=== PATIENT | female | born 1940 | race American Indian/Alaskan Native ===

== ENCOUNTER 2020-11-29 09:58 | Emergency (ER) | payer MEDICARE, BC, OTHER ==
[~2020-11-29] VITALS: Ht 152.4 cm; Wt 76.7 kg
[~2020-11-29 09:58] MED LIST: ALENDRONATE SOD70 MG PO; ALLOPURINOL300 MG PO; ANTIVERT25 MG PO; LISINOPRIL20 MG PO; METFORMIN HCL500 MG PO; VITAMIN D3400 UNIT PO; [UNRECOGNIZED DRUG - OTHER] PO
[2020-11-29] MEDS ORDERED: GLIPIZIDE XL5 MG PO (10:25)
[2020-11-29] MEDS ORDERED: TRAVOPROST2.5 ML OP (10:25)
== END 2020-11-29 10:56 | disposition home or self-care (01) ==
LOC: ED 09:58
DX: S83.91XA Sprain of unspecified site of right knee, initial encounter (principal); E11.9 Type 2 diabetes mellitus without complications; X58.XXXA Exposure to other specified factors, initial encounter; Z88.5 Allergy status to narcotic agent; Z91.048 Other nonmedicinal substance allergy status; Z79.899 Other long term (current) drug therapy; Z79.84 Long term (current) use of oral hypoglycemic drugs
CPT/HCPCS: 73560; 99283-25

== ENCOUNTER 2024-03-15 10:05 | Emergency (ER) | payer MEDICARE, BC, OTHER ==
[~2024-03-15] VITALS: Ht 152.4 cm; Wt 80.0 kg
[~2024-03-15 10:05] MED LIST changes: +GLIPIZIDE XL5 MG PO; +TRAVOPROST2.5 ML OP
[2024-03-15] MEDS ORDERED: [UNRECOGNIZED DRUG - OTHER] PO (10:18)
[2024-03-15] MEDS ORDERED: VAZALORE81 MG PO (10:20)
[2024-03-15] MEDS ORDERED: ZYRTEC10 M3 PO (10:21)
[2024-03-15] MEDS ORDERED: BENZONATATE200 MG PO (14:09)
[2024-03-15 14:20] VITALS: BP 141/78
== END 2024-03-15 14:21 | disposition home or self-care (01) ==
LOC: ED 10:05
DX: R05.9 Cough, unspecified (principal); E11.9 Type 2 diabetes mellitus without complications; Z79.82 Long term (current) use of aspirin; Z79.899 Other long term (current) drug therapy; Z88.5 Allergy status to narcotic agent
CPT/HCPCS: 71045; 99283-25